=== PATIENT | female | born 1990 | race Caucasian/White ===

== ENCOUNTER 2017-11-15 00:52 | Emergency (ER) | payer OTHER ==
[2017-11-15] MEDS ORDERED: LIDOCAINE 5% (700 MG) TRANSDERMAL ADH..PATCH TP ONE (01:41)
[2017-11-15] MEDS ORDERED: KETOROLAC TROMETHAMINE 60 MG/2 ML SDV IM ONE (01:41)
[2017-11-15] MEDS ORDERED: ACETAMINOPHEN 325 MG TABLET PO ONE (01:41)
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
[2017-11-15 02:56] VITALS: BP 112/73
== END 2017-11-15 02:56 | disposition home or self-care (01) ==
LOC: ER 00:52
DX: M25.512 Pain in left shoulder (principal); F17.200 Nicotine dependence, unspecified, uncomplicated; V87.7XXA Person injured in collision between other specified motor vehicles (traffic), initial encounter
CPT/HCPCS: 99284; 96372; 73030; J1885

== ENCOUNTER 2018-10-02 16:37 | Inpatient (IN) | payer MEDICAID ==
[2018-10-02] MEDS ORDERED: OXYTOCIN 10 UNIT/ML VIAL ONE (16:40)
[2018-10-02] MEDS ORDERED: MISOPROSTOL 0.2 MG TABLET ONE (16:40)
[2018-10-02] MEDS ORDERED: OXYTOCIN/NORMAL SALINE 20 UNIT/1,000 ML RTUINJ ONE (16:40)
[2018-10-02] MEDS ORDERED: LIDOCAINE 1% INJ-PF (10 MG/ML) 30 ML SDV ONE (16:40)
[2018-10-02] MEDS ORDERED: PROMETHAZINE HCL 25 MG TABLET PO PRN (17:04)
[2018-10-02] MEDS ORDERED: MEASLES,MUMPS&RUBELLA VACC/PF 0.5 ML VIAL SUBCUT PRN (17:04)
[2018-10-02] MEDS ORDERED: NA PHOS,M-B/NA PHOS,DI-BA (ADULT) 133 ML ENEMA PR PRN (17:04)
[2018-10-02] MEDS ORDERED: OXYTOCIN/NORMAL SALINE 20 UNIT/1,000 ML RTUINJ IV PRN (17:04)
[2018-10-02] MEDS ORDERED: ACETAMINOPHEN 650 MG SUPP.RECT PR PRN (17:04)
[2018-10-02] MEDS ORDERED: DIPHENHYDRAMINE HCL 25 MG CAPSULE PO PRN (17:04)
[2018-10-02] MEDS ORDERED: PSEUDOEPHEDRINE HCL 30 MG TABLET PO PRN (17:04)
[2018-10-02] MEDS ORDERED: PROMETHAZINE HCL 25 MG SUPP.RECT PR PRN (17:04)
[2018-10-02] MEDS ORDERED: MAGNESIUM HYDROXIDE SUSP 30 ML UDCUP PO PRN (17:04)
[2018-10-02] MEDS ORDERED: PROMETHAZINE HCL INJ 25 MG/1 ML VIAL IV PRN (17:04)
[2018-10-02] MEDS ORDERED: GLYCERIN/WITCH HAZEL LEAF 1 EACH MED..WIPE TP PRN (17:04)
[2018-10-02] MEDS ORDERED: ACETAMINOPHEN WITH CODEINE #3 TABLET PO PRN ×2 (17:04)
[2018-10-02] MEDS ORDERED: DIBUCAINE 1% OINTMENT 56 GM TP PRN (17:04)
[2018-10-02] MEDS ORDERED: ZOLPIDEM TARTRATE 5 MG TABLET PO PRN (17:04)
[2018-10-02] MEDS ORDERED: DIPH/PERTUSS(ACELL)/TETANUS VAC/PF 0.5 ML SYR (>=10YO) IM PRN (17:04)
[2018-10-02] MEDS ORDERED: BENZOCAINE/MENTHOL AEROSOL SPRAY 56 ML TOP PRN (17:04)
[2018-10-02 17:41] LABS: ABSOLUTE BASOPHILS # (AUTO) 0.1 10^3/uL (0.0-0.2); ABSOLUTE EOSINOPHILS # (AUTO) 0.1 10^3/uL (0.0-0.6); ABSOLUTE LYMPHOCYTES (AUTO) 1.3 10^3/uL (0.5-4.7); ABSOLUTE MONOCYTES (AUTO) 1.6 10^3/uL (0.1-1.4); ABSOLUTE NEUT (AUTO) 14.8 10^3/uL (1.7-8.2); BASOPHILS % (AUTO) 0.3 % (0-2); EOSINOPHILS % (AUTO) 0.7 % (0-6); HEMATOCRIT 38.1 % (36.0-47.0); LYMPHOCYTES % (AUTO) 7.5 % (13-45); MEAN CORPUSCULAR HEMOGLOBIN 30.6 pg (27.0-33.4); MEAN CORPUSCULAR VOLUME 90 fl (80-97); MONOCYTES % (AUTO) 9.2 % (3-13); PLATELET COUNT 296 10^3/uL (150-450); RED BLOOD COUNT 4.24 10^6/uL (3.72-5.28); RED CELL DISTRIBUTION WIDTH 12.5 % (11.5-14.0); SEGMENTED NEUTROPHILS % (AUTO) 82.3 % (42-78); TOTAL CELLS COUNTED % (AUTO) 100 %
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
[2018-10-02 17:53] LABS: AMORPHOUS SEDIMENT,URINE TRACE /HPF; APPEARANCE,URINE TURBID; BILIRUBIN,URINE NEGATIVE (NEGATIVE); COLOR,URINE YELLOW; GLUCOSE, URINE NEGATIVE (NEGATIVE); KETONES,URINE TRACE mg/dL (NEGATIVE); LEUKOCYTE ESTERASE,URINE NEGATIVE (NEGATIVE); NITRITE,URINE NEGATIVE (NEGATIVE); PROTEIN,URINE 30 mg/dL (NEGATIVE); URINE SPECIFIC GRAVITY 1.011
[2018-10-02 17:55] LABS: INTERNATIONAL RATION (INR) 0.94
[2018-10-02 17:56] LABS: FIBRINOGEN 428 mg/dL (209-497); PARTIAL THROMBOPLASTIN TIME 30.5 SEC (23.5-35.8)
[2018-10-02 18:03] LABS: ALANINE AMINOTRANSFERASE 28 U/L (9-52); ALBUMIN 3.1 g/dL (3.5-5.0); ALKALINE PHOSPHATASE 181 U/L (38-126); ANION GAP 9 (5-19); ASPARTATE AMINO TRANSFERASE 23 U/L (14-36); BILIRUBIN,DIRECT 0.2 mg/dL (0.0-0.4); BILIRUBIN,TOTAL 0.5 mg/dL (0.2-1.3); BLOOD UREA NITROGEN 7 mg/dL (7-20); CARBON DIOXIDE 23 mmol/L (22-30); CHLORIDE 110 mmol/L (98-107); GLUCOSE 71 mg/dL (75-110); POTASSIUM 3.1 mmol/L (3.6-5.0); SODIUM 141.8 mmol/L (137-145); TOTAL PROTEIN 5.6 g/dL (6.3-8.2); URIC ACID 3.6 mg/dL (2.5-6.2)
[2018-10-02 18:10] LABS: URINE BARBITURATES SCREEN NEGATIVE; URINE BENZODIAZEPINES SCREEN NEGATIVE; URINE COCAINE SCREEN NEGATIVE; URINE MARIJUANA (THC) SCREEN NEGATIVE; URINE METHADONE SCREEN NEGATIVE; URINE PHENCYCLIDINE SCREEN NEGATIVE
[2018-10-02 18:13] LABS: URINE AMPHETAMINES SCREEN UNCONFIRMED POSITIVE
[2018-10-02 18:14] LABS: UR PRO/CREAT RATIO RESULT 0.7 mg/mg (0.0-0.2); URINE CREATININE 87.9 mg/dL (16-327); URINE PROTEIN 57.6 mg/dL (<12)
[2018-10-02] MEDS: DOCUSATE SODIUM 100 MG CAPSULE PO SCH (18:37)
[2018-10-02] MEDS: FERROUS SULFATE 325 MG TABLET PO SCH (18:38)
--- NOTE | 2018-10-02 18:40 | Delivery Summary ---
Del Sum A-C Datetime Report Generated by CPN: 10/02/2018 18:40 DELIVERY PERSONNEL DELIVERY PERSONNEL: [id number] Delivery Doctor:: Adali Mathias MD Labor and Delivery Nurse:: Pili Field RN Nursery Nurse:: Geri Lerma RN Long Chain Dyeing Machine Operator/KIER TENDER: Bridgette Bowena, ST MATERNAL INFORMATION Delivery Anesthesia: None Medications After Delivery: Pitocin Drip 20 Units/1000ml NSS Estimated Blood Loss (ml): 200 Maternal Complications: Precipitous Labor (<3hrs); Other Other Maternal Complications: limited care Complication Details: 1 visit Provider Comments: OB Emergency called to Trauma Room 2 in ER. VMI delivered approximately 3 minutes after arrival. Delivered in SANGITA presentation with compound right hand. Cord doubly clamped and cut and to Nursery personnel then to abdomen for NRP. Patient taken with baby on maternal chest via stretcher to Labor and delivery room#2. Straight cath urine specimen obtained. Placenta delivered intact spontaneously and manual sweep performed with no e/o retained products. 1st degree perineal laceration repaired with 20ml of Lidocaine 1% for local anesthesia. Mother and baby stable upon provider leaving the room. LABOR SUMMARY EDC: 10/18/2018 00:00 No. Babies in Womb: 1 Attempted: No Labor Anesthesia: None LABOR INFORMATION Reason for Induction: Not Applicable Onset of Labor: 10/02/2018 09:00 Complete Dilatation: 10/02/2018 14:33 Oxytocin: N/A Group B Beta Strep: unknown Antibiotics # of Doses: 0 Steroids Given: None Reason Steroids Not Administered: Not Applicable MEMBRANES Membranes Rupture Method: Spontaneous Rupture of Membranes: 10/02/2018 14:30 Length of Rupture (hr): 2.10 Amniotic Fluid Color: Clear Amniotic Fluid Amount: Small Amniotic Fluid Odor: Normal STAGES OF LABOR Stage 1 hr: 5 Stage 1 min: 33 Stage 2 hr: 2 Stage 2 min: 3 Stage 3 hr: 0 Stage 3 min: 24 Total Time in Labor hr: 8 Total Time in Labor min: 0 VAGINAL DELIVERY Episiotomy: None Laceration #1: Perineal Laceration Extension #1: First Degree Laceration Repair: Yes Laceration Repair Note: 1st degree perineal laceration repaired inusual fashion. Sponge Count Correct: Yes Sharps Count Correct: Yes CSECTION DELIVERY Primary Indication: N/A Secondary Indication: N/A CSection Incidence: N/A Labor: N/A Elective: N/A CSection Incision: N/A BABY A INFORMATION Infant Delivery Date/Time: 10/02/2018 16:36 Method of Delivery: Vaginal Born in Route : No : N/A Forceps: N/A Vacuum Extraction: N/A Shoulder Dystocia : No PRESENTATION/POSITION BABY A Presentation: Cephalic Cephalic Presentation: Vertex Vertex Position: Right Occipital Anterior Breech Presentation: N/A PLACENTA INFORMATION BABY A Placenta Delivery Time : 10/02/2018 17:00 Placenta Method of Delivery: Spontaneous Placenta Status: Delivered SCORES BABY A Heart Rate 1 min: >100 bpm Resp Effort 1 min: Good Cry Reflex Irritability 1 min: Cough or Sneeze or Pulls Away Muscle Tone 1 min: Active Motion Color 1 min: Blue/Pale Resuscitation Effort 1 min: Tactile Stimulation SCORE 1 MIN: 8 Heart Rate 5 min: >100 bpm Resp Effort 5 min: Good Cry Reflex Irritability 5 min: Cough or Sneeze or Pulls Away Muscle Tone 5 min: Active Motion Color 5 min: Body [place], Extremities Blue Resuscitation Effort 5 min: N/A SCORE 5 MIN: 9 INFANT INFORMATION BABY A Gestational Age at Delivery: 39.0 Gestational Status: Full Term- 39- 40.6 Weeks Outcome : Liveborn Condition : Stable Infant Sex: Male IDENTIFICATION BABY A Infant Verification Date/Time: 10/02/2018 17:24 ID Band Number: [id number] Mother's Name Verified: Yes RN Verifying Infant: B Baidy RN/[employer] [place] [facility] WEIGHT/LENGTH BABY A Birthweight (gm): 3475 Infant Weight (lb): 7 Weight (oz): 11 Infant Length (in): 20.00 Infant Length (cm): 50.80 CORD INFORMATION BABY A No. Cord Vessels: 3 Nuchal Cord : Around Neck x1, Loose Cord Blood Taken: Yes-For Eval (Mom's Blood Type - or O+) Infant Suction: None ASSESSMENT BABY A Skin to Skin: Yes Skin to Skin Time (min): 15 Infant Care By: K Shamar RN Transferred To: Nursery BABY B INFORMATION : N/A SIGNATURES Signature: with User ID: [email or web address]
[2018-10-02] MEDS ORDERED: NIFEDIPINE 30 MG TAB.ER.24 PO ONE (21:00)
[2018-10-02] MEDS: FAMOTIDINE 20 MG TABLET PO SCH (22:28)
[2018-10-02] MEDS: IBUPROFEN 800 MG TABLET PO SCH (22:30)
[2018-10-02 22:53] LABS: CHLAM PCR NOT DETECTED (NOT DETECT); GON PCR NOT DETECTED (NOT DETECT)
[2018-10-03] MEDS ORDERED: LABETALOL HCL 200 MG TABLET PO ONE (06:15)
[2018-10-03] MEDS: IBUPROFEN 800 MG TABLET PO SCH ×3 (06:29→21:14)
[2018-10-03 07:26] LABS: HEMATOCRIT 34.8 % (36.0-47.0); HEMOGLOBIN 11.9 g/dL (12.0-15.5); MEAN CORPUSCULAR HEMOGLOBIN 30.7 pg (27.0-33.4); MEAN CORPUSCULAR HGB CONC 34.2 g/dL (32.0-36.0); MEAN CORPUSCULAR VOLUME 90 fl (80-97); PLATELET COUNT 305 10^3/uL (150-450); RED BLOOD COUNT 3.87 10^6/uL (3.72-5.28)
[2018-10-03] MEDS: PRENATAL VITAMIN W DHA CAPSULE PO SCH (09:50)
[2018-10-03] MEDS: FAMOTIDINE 20 MG TABLET PO SCH ×2 (09:50→21:14)
[2018-10-03] MEDS: SENNOSIDES/DOCUSATE 8.6-50 MG 1 EACH TABLET PO SCH (09:50)
[2018-10-03] MEDS: FUROSEMIDE 20 MG TABLET PO SCH (09:50)
[2018-10-03] MEDS: NIFEDIPINE 30 MG TAB.ER.24 PO SCH ×2 (09:50→21:14)
[2018-10-03] MEDS: FERROUS SULFATE 325 MG TABLET PO SCH ×2 (09:50→18:58)
[2018-10-03] MEDS: DOCUSATE SODIUM 100 MG CAPSULE PO SCH ×2 (09:50→18:58)
--- NOTE | 2018-10-03 09:59 | PDOC PROGRESS REPORT ---
Subjective-OB Progress Note for:: 10/03/18 Subjective: Pt doing well. Sleeping, reports light bleeding, reg diet and voiding without difficulty. Physical Exam (OB) Vital Signs: Temp Pulse Resp BP Pulse Ox 98.3 F 88 18 159/94 H 99 10/03/18 03:39 10/03/18 03:39 10/03/18 03:39 10/03/18 03:39 10/03/18 03:39 Intake & Output 10/02/18 10/03/18 10/04/18 06:59 06:59 06:59 Weight 86.183 kg - Lochia Lochia Amount: Small 10-25 ml Lochia Color: Rubra/Red - Abdomen Description: Soft, Round Hernia Present: No Fundal Description: Firm, Midline Fundal Height: u/u - u/2 Objective-Diagnostic Laboratory: 10/03/18 07:17 10/02/18 17:24 10/02/18 10/02/18 10/02/18 17:00 17:24 17:24 WBC 18.0 H RBC 4.24 Hgb 13.0 Hct 38.1 MCV 90 MCH 30.6 MCHC 34.0 RDW 12.5 Plt Count 296 Seg Neutrophils % 82.3 H Lymphocytes % 7.5 L Monocytes % 9.2 Eosinophils % 0.7 Basophils % 0.3 Absolute Neutrophils 14.8 H Absolute Lymphocytes 1.3 Absolute Monocytes 1.6 H Absolute Eosinophils 0.1 Absolute Basophils 0.1 Sodium 141.8 Potassium 3.1 L Chloride 110 H Carbon Dioxide 23 Anion Gap 9 BUN 7 Creatinine 0.58 Est GFR ( Amer) > 60 Est GFR (Non-Af Amer) > 60 Glucose 71 L Uric Acid 3.6 Calcium 9.0 Total Bilirubin 0.5 AST 23 ALT 28 Alkaline Phosphatase 181 H Total Protein 5.6 L Albumin 3.1 L Urine Color YELLOW Urine Appearance TURBID Urine pH 6.0 Ur Specific [place] 1.011 Urine Protein 30 H Urine Glucose (UA) NEGATIVE Urine Ketones TRACE H Urine Blood LARGE H Urine Nitrite NEGATIVE Ur Leukocyte Esterase NEGATIVE Urine WBC (Auto) 5 Urine RBC (Auto) 162 Blood Type Antibody Screen 10/02/18 10/03/18 17:24 07:17 WBC 16.0 H RBC 3.87 Hgb 11.9 L Hct 34.8 L MCV 90 MCH 30.7 MCHC 34.2 RDW 13.0 Plt Count 305 Seg Neutrophils % Lymphocytes % Monocytes % Eosinophils % Basophils % Absolute Neutrophils Absolute Lymphocytes Absolute Monocytes Absolute Eosinophils Absolute Basophils Sodium Potassium Chloride Carbon Dioxide Anion Gap BUN Creatinine Est GFR ( Amer) Est GFR (Non-Af Amer) Glucose Uric Acid Calcium Total Bilirubin AST ALT Alkaline Phosphatase Total Protein Albumin Urine Color Urine Appearance Urine pH Ur Specific [place] Urine Protein Urine Glucose (UA) Urine Ketones Urine Blood Urine Nitrite Ur Leukocyte Esterase Urine WBC (Auto) Urine RBC (Auto) Blood Type O NEGATIVE Antibody Screen NEGATIVE Assessment and Plan(PN) - Assessment and Plan (1) Vaginal delivery Is this a current diagnosis for this admission?: Yes (2) Late care Is this a current diagnosis for this admission?: Yes (3) Obstetrical laceration, first degree Is this a current diagnosis for this admission?: Yes - Time Spent with Patient Time with patient: Less than 15 minutes Medications reviewed and adjusted accordingly: Yes - Disposition Anticipated Discharge: Home Within: within 24 hours
[2018-10-03] MEDS: LABETALOL HCL 200 MG TABLET PO SCH (18:58)
[2018-10-04] MEDS: IBUPROFEN 800 MG TABLET PO SCH ×3 (04:59→22:29)
[2018-10-04] MEDS: LABETALOL HCL 200 MG TABLET PO SCH ×2 (06:43→17:33)
[2018-10-04] MEDS: FAMOTIDINE 20 MG TABLET PO SCH ×2 (09:23→22:29)
[2018-10-04] MEDS: SENNOSIDES/DOCUSATE 8.6-50 MG 1 EACH TABLET PO SCH (09:23)
[2018-10-04] MEDS: PRENATAL VITAMIN W DHA CAPSULE PO SCH (09:23)
[2018-10-04] MEDS: DOCUSATE SODIUM 100 MG CAPSULE PO SCH ×2 (09:23→17:32)
[2018-10-04] MEDS: FERROUS SULFATE 325 MG TABLET PO SCH ×2 (09:23→17:33)
[2018-10-04] MEDS: NIFEDIPINE 30 MG TAB.ER.24 PO SCH ×2 (09:24→22:29)
[2018-10-04] MEDS: FUROSEMIDE 20 MG TABLET PO SCH (09:24)
[2018-10-05] MEDS: LABETALOL HCL 200 MG TABLET PO SCH (05:56)
[2018-10-05] MEDS: IBUPROFEN 800 MG TABLET PO SCH ×2 (06:00→14:04)
[2018-10-05 08:38] VITALS: BP 125/80
[2018-10-05] MEDS: FUROSEMIDE 20 MG TABLET PO SCH (09:38)
[2018-10-05] MEDS: SENNOSIDES/DOCUSATE 8.6-50 MG 1 EACH TABLET PO SCH (09:38)
[2018-10-05] MEDS: NIFEDIPINE 30 MG TAB.ER.24 PO SCH (09:38)
[2018-10-05] MEDS: DOCUSATE SODIUM 100 MG CAPSULE PO SCH (09:38)
[2018-10-05] MEDS: FERROUS SULFATE 325 MG TABLET PO SCH (09:38)
[2018-10-05] MEDS: FAMOTIDINE 20 MG TABLET PO SCH (09:38)
[2018-10-05] MEDS: PRENATAL VITAMIN W DHA CAPSULE PO SCH (09:48)
--- NOTE | 2018-10-05 14:29 | PDOC DISCHARGE SUMMARY ---
Final Diagnosis Discharge Date: 10/05/18 - Final Diagnosis (1) Vaginal delivery Is this a current diagnosis for this admission?: Yes (2) Limited care Is this a current diagnosis for this admission?: Yes (3) Late care Is this a current diagnosis for this admission?: Yes (4) Obstetrical laceration, first degree Is this a current diagnosis for this admission?: Yes (5) Hypertension affecting Is this a current diagnosis for this admission?: Yes (6) Precipitous delivery, delivered (current hospitalization) Is this a current diagnosis for this admission?: Yes (7) Drug use affecting Is this a current diagnosis for this admission?: Yes Discharge Data - Discharge Medication Prescriptions: Ibuprofen [Motrin 800 mg Tablet] 800 mg PO Q8HP PRN #30 tablet PRN Reason: Labetalol HCl [Normodyne 200 mg Tablet] 100 mg PO Q12A #30 tablet Nifedipine [Procardia XL 30 mg Tablet] 30 mg PO Q12 #30 tab.er.24 Vit/Dha [ Multi + Dha Capsule] 1 cap PO DAILY #90 capsule Home Medications: Ibuprofen [Motrin 800 mg Tablet] 800 mg PO Q8HP PRN #30 tablet 10/05/18 Labetalol HCl [Normodyne 200 mg Tablet] 100 mg PO Q12A #30 tablet 10/05/18 Nifedipine [Procardia XL 30 mg Tablet] 30 mg PO Q12 #30 tab.er.24 10/05/18 Vit/Dha [ Multi + Dha Capsule] 1 cap PO DAILY #90 capsule 10/05/18 Reason(s) for Admission: Onset of Labor Procedures: Ultrasound Intrapartum Procedure(s): Spontaneous Vaginal Delivery Complication(s): Laceration-Perineal Laceration-Degree: 1st - Diagnosis Test Laboratory: Temp Pulse Resp BP Pulse Ox 98.2 F 76 16 125/80 98 10/05/18 12:09 10/05/18 12:09 10/05/18 12:09 10/05/18 12:09 10/05/18 12:09 10/02/18 10/02/18 10/03/18 17:00 17:24 07:17 RBC 4.24 3.87 Hgb 13.0 11.9 L Hct 38.1 34.8 L Urine Opiates Screen NEGATIVE - Discharge information/Instructions Discharge Activity: Activity As Tolerated, Balance Activity w/Rest, No Lifting Over 10 Pounds, Pelvic Rest, No tub bath, Walk Frequently Discharge Diet: As Tolerated, Regular Disposition: HOME, SELF-CARE Follow up with: [facility]: 3, Days - blood pressure check
== END 2018-10-05 16:15 | disposition home or self-care (01) | DRG 806 ==
LOC: LC 16:37 → LR 16:58 → 2S 19:42
PROVIDERS: ADMIT Student in an Organized Health Care Education/Training Program; ATTEND Student in an Organized Health Care Education/Training Program
PROC: 10E0XZZ Delivery of Products of Conception, External Approach (ICD-10-PCS; principal; 2018-10-02)
PROC: 0HQ9XZZ Repair Perineum Skin, External Approach (ICD-10-PCS; 2018-10-02)
PROC: 4A1HXCZ Monitoring of Products of Conception, Cardiac Rate, External Approach (ICD-10-PCS; 2018-10-02)
DX: O69.81X0 Labor and delivery complicated by cord around neck, without compression, not applicable or unspecified (principal); O99.323 Drug use complicating pregnancy, third trimester; Z37.0 Single live birth; O70.0 First degree perineal laceration during delivery; O62.3 Precipitate labor; F19.90 Other psychoactive substance use, unspecified, uncomplicated; O99.334 Smoking (tobacco) complicating childbirth; F17.210 Nicotine dependence, cigarettes, uncomplicated; O99.344 Other mental disorders complicating childbirth; F41.9 Anxiety disorder, unspecified; F31.9 Bipolar disorder, unspecified; O32.6XX0 Maternal care for compound presentation, not applicable or unspecified; Z86.14 Personal history of Methicillin resistant Staphylococcus aureus infection; Z3A.37 37 weeks gestation of pregnancy
CPT/HCPCS: 36415; 80053; 80307; 81001; 82570; 84156; 84550; 85025; 85027; 85384; 85610; 85730; 86592; 86850; 86900; 86901; 87491; 87591; 88307; G0480; J2590; J3490

== ENCOUNTER 2018-10-15 01:59 | Emergency (ER) | payer MEDICAID ==
[2018-10-15] MEDS ORDERED: NIFEDIPINE 30 MG TAB.ER.24 PO ONE (04:48)
[2018-10-15] MEDS ORDERED: LABETALOL HCL 200 MG TABLET PO ONE (04:48)
[2018-10-15 05:22] LABS: ABSOLUTE BASOPHILS # (AUTO) 0.1 10^3/uL (0.0-0.2); ABSOLUTE EOSINOPHILS # (AUTO) 0.3 10^3/uL (0.0-0.6); ABSOLUTE LYMPHOCYTES (AUTO) 2.7 10^3/uL (0.5-4.7); ABSOLUTE MONOCYTES (AUTO) 0.7 10^3/uL (0.1-1.4); ABSOLUTE NEUT (AUTO) 4.1 10^3/uL (1.7-8.2); BASOPHILS % (AUTO) 1.1 % (0-2); EOSINOPHILS % (AUTO) 3.6 % (0-6); HEMATOCRIT 41.9 % (36.0-47.0); LYMPHOCYTES % (AUTO) 34.1 % (13-45); MEAN CORPUSCULAR HEMOGLOBIN 30.2 pg (27.0-33.4); MEAN CORPUSCULAR HGB CONC 33.4 g/dL (32.0-36.0); MEAN CORPUSCULAR VOLUME 91 fl (80-97); PLATELET COUNT 442 10^3/uL (150-450); RED BLOOD COUNT 4.62 10^6/uL (3.72-5.28); RED CELL DISTRIBUTION WIDTH 12.8 % (11.5-14.0); SEGMENTED NEUTROPHILS % (AUTO) 52.2 % (42-78); TOTAL CELLS COUNTED % (AUTO) 100 %; WHITE BLOOD COUNT 7.8 10^3/uL (4.0-10.5)
[2018-10-15 05:28] LABS: APPEARANCE,URINE SLIGHTLY-CLOUDY; BILIRUBIN,URINE NEGATIVE (NEGATIVE); COLOR,URINE YELLOW; GLUCOSE, URINE NEGATIVE (NEGATIVE); KETONES,URINE NEGATIVE (NEGATIVE); LEUKOCYTE ESTERASE,URINE MODERATE (NEGATIVE); NITRITE,URINE NEGATIVE (NEGATIVE); PROTEIN,URINE NEGATIVE (NEGATIVE); URINE SPECIFIC GRAVITY 1.016; UROBILINOGEN,URINE NEGATIVE mg/dL (<2.0)
[2018-10-15 05:29] LABS: ALANINE AMINOTRANSFERASE 25 U/L (9-52); ALBUMIN 3.7 g/dL (3.5-5.0); ALKALINE PHOSPHATASE 107 U/L (38-126); ANION GAP 7 (5-19); ASPARTATE AMINO TRANSFERASE 35 U/L (14-36); BILIRUBIN,DIRECT 0.2 mg/dL (0.0-0.4); BILIRUBIN,TOTAL 0.3 mg/dL (0.2-1.3); BLOOD UREA NITROGEN 20 mg/dL (7-20); CALCIUM 9.4 mg/dL (8.4-10.2); CARBON DIOXIDE 27 mmol/L (22-30); CHLORIDE 106 mmol/L (98-107); GLUCOSE 84 mg/dL (75-110); LIPASE 120.9 U/L (23-300); POTASSIUM 4.2 mmol/L (3.6-5.0); SODIUM 139.9 mmol/L (137-145); TOTAL PROTEIN 6.5 g/dL (6.3-8.2)
--- NOTE | 2018-10-15 06:12 | ER Document Report ---
ED General - General Chief Complaint: Abdominal Pain Stated Complaint: ABDOMINAL PAIN Time Seen by Provider: 10/15/18 04:14 TRAVEL OUTSIDE OF THE [place] IN LAST 30 DAYS: No - HPI Notes: Patient is a 27-year-old female who presents to the emergency department for evaluation. She is a G2, P2, last vaginal delivery was the end of September. She states she had gestational hypertension with her last , had preeclampsia with her first. She was actually supposed to be continuing on 2 blood pressure medications after delivery, but has not yet filled the prescriptions. She states her blood pressure is high. She also has some lower abdominal pain. She is had some intermittent vaginal bleeding and lochia. No dysuria, hematuria, or urinary frequency. No fevers or chills. She denies any headaches or visual changes. - Related Data Allergies/Adverse Reactions: No Known Allergies Allergy (Verified 11/15/17 02:02) Past Medical History - General Information source: Patient - Social History Smoking Status: Former Smoker Family History: Reviewed & Not Pertinent Patient has suicidal ideation: No Patient has homicidal ideation: No Renal/ Medical History: Denies: Hx Peritoneal Dialysis Musculoskeletal Medical History: Reports Hx Arthritis - L shoulder Psychiatric Medical History: Reports: Hx Depression Review of Systems - Review of Systems Constitutional: No symptoms reported EENT: No symptoms reported Cardiovascular: No symptoms reported Respiratory: No symptoms reported Gastrointestinal: See HPI Genitourinary: No symptoms reported Female Genitourinary: See HPI Musculoskeletal: No symptoms reported Skin: No symptoms reported Neurological/Psychological: No symptoms reported Physical Exam - Vital signs Vitals: Temp Pulse Resp BP Pulse Ox 97.3 F 70 15 128/98 H 96 10/15/18 02:03 10/15/18 02:03 10/15/18 02:03 10/15/18 02:03 10/15/18 02:03 - Notes Notes: Vital signs reviewed, please refer to chart. Head is normocephalic, atraumatic. Pupils equal round, reactive to light. Neck is supple without meningismus. Heart is regular rate and rhythm. Lungs are clear to auscultation bilaterally. Abdomen is soft, nontender, normoactive bowel sounds throughout. Extremities without cyanosis, clubbing. Posterior calves are nontender. Peripheral pulses are equal. Skin is warm and dry. Patient is awake, alert, oriented x3. Cranial nerves II - XII are grossly intact without focal neurological deficits. Strength is plus 5 out of 5 bilateral lower extremities. Sensation is intact. Reflexes symmetrical. Intact [id number], rapid altering movements, [id number]. Course - Re-evaluation Re-evalutation: 10/15/18 06:13 Patient is a 27-year-old female who presents to the emergency department for evaluation of elevated blood pressure and lower abdominal pain. She has had no fevers, no nausea, no vomiting. She is having normal bleeding after . She has an entirely nontender abdomen. Her neurological exam is unremarkable as well. Her blood pressure is moderately elevated here, but she is supposed to be on antihypertensives. She has no protein in her urine. Patient was given her Procardia here. She is told that she needs to fill her prescriptions and take her medications as prescribed. She voiced understanding to this. She also asked that her thyroid be checked, TSH is found to be normal as well. She is to follow-up as scheduled with [facility], return to the ED with worsening or new concerning symptoms. - Vital Signs Vital signs: Temp Pulse Resp BP Pulse Ox 97.3 F 70 18 138/97 H 96 10/15/18 02:03 10/15/18 02:03 10/15/18 05:01 10/15/18 05:01 10/15/18 02:03 - Laboratory Result Diagrams: 10/15/18 04:54 10/15/18 04:54 Laboratory results interpreted by me: 10/15/18 04:45 Urine Blood LARGE H Ur Leukocyte Esterase MODERATE H Discharge - Discharge Clinical Impression: Gestational hypertension, Lower abdominal pain Condition: Stable Disposition: HOME, SELF-CARE Instructions: Abdominal Pain ([facility]), High Blood Pressure, Requiring Treatment ([facility]) Additional Instructions: You need to fill your prescriptions and take your medications as prescribed. Follow-up with your [facility] as scheduled, primary care in 1 to 2 weeks. Return to the emergency department with worsening or new concerning symptoms.
[2018-10-15 08:26] VITALS: BP 126/90
== END 2018-10-15 08:14 | disposition home or self-care (01) ==
LOC: ER 01:59
DX: O13.5 Gestational [pregnancy-induced] hypertension without significant proteinuria, complicating the puerperium (principal); T46.1X6A Underdosing of calcium-channel blockers, initial encounter; Z91.128 Patient's intentional underdosing of medication regimen for other reason; Z91.14 Patient's other noncompliance with medication regimen; O90.89 Other complications of the puerperium, not elsewhere classified; R10.30 Lower abdominal pain, unspecified; O72.2 Delayed and secondary postpartum hemorrhage; Z87.891 Personal history of nicotine dependence
CPT/HCPCS: 99284; 36415; 83690; 84443; 85025; 81025; 80053; 81001; J3490

== ENCOUNTER 2018-12-06 21:18 | Emergency (ER) | payer MEDICAID ==
--- NOTE | 2018-12-06 22:08 | ER Document Report ---
ED Medical Screen (RME) - General Chief Complaint: Suicidal Ideation Stated Complaint: ANXIETY Time Seen by Provider: 12/06/18 22:05 Mode of Arrival: Ambulatory Information source: Patient Notes: 27-year-old female presented to ED today for depression. She states she is very depressed and needs to get back on her medicines but she has come to the emergency room because she has been having intermittent thoughts of suicide. She states she just wanted the mobile crisis to give her the medicine but they said she has to come to the emergency room. She has a 2-month-old child at home and is severely depressed. Patient is alert oriented respirations regular nonlabored speaking in full sentences. She states she might have something in her system but she does not want people coming into her home because of the medication in her system. I have greeted and performed a rapid initial assessment of this patient. A comprehensive ED assessment and evaluation of the patient, analysis of test results and completion of medical decision making process will be conducted by an additional ED providers. Dictation of this chart was performed using voice recognition software; ther efore, there may be some unintended grammatical errors. TRAVEL OUTSIDE OF THE [place] IN LAST 30 DAYS: No - Related Data Allergies/Adverse Reactions: No Known Allergies Allergy (Verified 11/15/17 02:02) Past Medical History Renal/ Medical History: Denies: Hx Peritoneal Dialysis Musculoskeltal Medical History: Reports Hx Arthritis - L shoulder Psychiatric Medical History: Reports: Hx Depression Physical Exam - Vital signs Vitals: Temp Pulse Resp BP Pulse Ox 97.3 F 82 20 141/106 H 100 12/06/18 21:43 12/06/18 21:43 12/06/18 21:43 12/06/18 21:43 12/06/18 21:43 Course - Vital Signs Vital signs: Temp Pulse Resp BP Pulse Ox 97.3 F 82 20 141/106 H 100 12/06/18 21:43 12/06/18 21:43 12/06/18 21:43 12/06/18 21:43 12/06/18 21:43
[2018-12-06 22:36] LABS: ABSOLUTE EOSINOPHILS # (AUTO) 0.3 10^3/uL (0.0-0.6); ABSOLUTE MONOCYTES (AUTO) 0.6 10^3/uL (0.1-1.4); ABSOLUTE NEUT (AUTO) 5.8 10^3/uL (1.7-8.2); BASOPHILS % (AUTO) 0.6 % (0-2); EOSINOPHILS % (AUTO) 3.6 % (0-6); HEMATOCRIT 47.1 % (36.0-47.0); HEMOGLOBIN 15.7 g/dL (12.0-15.5); LYMPHOCYTES % (AUTO) 23.1 % (13-45); MEAN CORPUSCULAR HEMOGLOBIN 30.3 pg (27.0-33.4); MEAN CORPUSCULAR HGB CONC 33.3 g/dL (32.0-36.0); MEAN CORPUSCULAR VOLUME 91 fl (80-97); MONOCYTES % (AUTO) 6.9 % (3-13); PLATELET COUNT 363 10^3/uL (150-450); RED BLOOD COUNT 5.18 10^6/uL (3.72-5.28); RED CELL DISTRIBUTION WIDTH 14.4 % (11.5-14.0); SEGMENTED NEUTROPHILS % (AUTO) 65.8 % (42-78); TOTAL CELLS COUNTED % (AUTO) 100 %; WHITE BLOOD COUNT 8.8 10^3/uL (4.0-10.5)
[2018-12-06] MEDS ORDERED: NICOTINE 14 MG/24 HR PATCH.TD24 TD ONE (22:44)
[2018-12-06 22:50] LABS: AMORPHOUS SEDIMENT,URINE TRACE /HPF; APPEARANCE,URINE SLIGHTLY-CLOUDY; BILIRUBIN,URINE NEGATIVE (NEGATIVE); CALCIUM OXALATE CRYSTALS,URINE MANY /HPF; COLOR,URINE YELLOW; GLUCOSE, URINE NEGATIVE (NEGATIVE); KETONES,URINE NEGATIVE (NEGATIVE); LEUKOCYTE ESTERASE,URINE MODERATE (NEGATIVE); NITRITE,URINE NEGATIVE (NEGATIVE); PROTEIN,URINE 30 mg/dL (NEGATIVE); URINE SPECIFIC GRAVITY 1.019
[2018-12-06 22:56] LABS: ALANINE AMINOTRANSFERASE 29 U/L (9-52); ALBUMIN 4.4 g/dL (3.5-5.0); ALKALINE PHOSPHATASE 75 U/L (38-126); ANION GAP 6 (5-19); ASPARTATE AMINO TRANSFERASE 26 U/L (14-36); BILIRUBIN,DIRECT 0.2 mg/dL (0.0-0.4); BILIRUBIN,TOTAL 0.2 mg/dL (0.2-1.3); BLOOD UREA NITROGEN 9 mg/dL (7-20); CALCIUM 9.3 mg/dL (8.4-10.2); CARBON DIOXIDE 25 mmol/L (22-30); CHLORIDE 109 mmol/L (98-107); GLUCOSE 85 mg/dL (75-110); POTASSIUM 4.2 mmol/L (3.6-5.0); TOTAL PROTEIN 6.8 g/dL (6.3-8.2)
[2018-12-06 22:58] LABS: URINE BARBITURATES SCREEN NEGATIVE; URINE BENZODIAZEPINES SCREEN NEGATIVE; URINE COCAINE SCREEN NEGATIVE; URINE MARIJUANA (THC) SCREEN NEGATIVE; URINE METHADONE SCREEN NEGATIVE; URINE PHENCYCLIDINE SCREEN NEGATIVE
[2018-12-06 23:04] LABS: ACETAMINOPHEN < 10 ug/mL (10-30); ALCOHOL < 10 mg/dL (NONE DETECTED); SALICYLATE < 1.0 mg/dL (2.0-20.0)
[2018-12-06] MEDS ORDERED: SULFAMETHOXAZOLE/TRIMETHOPRIM 800-160 MG TABLET PO ONE (23:10)
--- NOTE | 2018-12-06 23:59 | EKG REPORT ---
SEVERITY:- NORMAL ECG - SINUS RHYTHM : Confirmed by: Khushi De La Cruz MD 06-Dec-2018 23:58:17
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
[2018-12-07] MEDS ORDERED: HYDROXYZINE HCL INJ 50 MG/1 ML VIAL IM ONE (00:24)
[2018-12-07] MEDS ORDERED: SULFAMETHOXAZOLE/TRIMETHOPRIM 800-160 MG TABLET PO SCH (10:00)
[2018-12-07 11:05] VITALS: BP 142/87
== END 2018-12-07 13:15 | disposition home or self-care (01) ==
LOC: ER 21:18
DX: R45.851 Suicidal ideations (principal); F32.9 Major depressive disorder, single episode, unspecified; F15.10 Other stimulant abuse, uncomplicated; F17.210 Nicotine dependence, cigarettes, uncomplicated
CPT/HCPCS: 93005; 99285; 96374; 36415; 87086; 80307 ×4; 84703; 85025; 80053; 81001; 93010; J3410; J3490 ×3

== ENCOUNTER 2018-12-08 19:14 | Emergency (ER) | payer MEDICAID ==
--- NOTE | 2018-12-08 20:58 | ER Document Report ---
ED Medical Screen (RME) - General Chief Complaint: Suicidal Ideation Stated Complaint: SUICIDIAL IDEATIONS, SELF HARM Time Seen by Provider: 12/08/18 20:43 Notes: Patient is a 27-year-old female who presents to the emergency department with suicidal ideations. She was being seen in a detox facility to get off of " ice." She states that she did have some suicidal ideation, but did not comment on a plan. She has a history of depression and was on Effexor. She would like to try to get back on her Effexor. Exam: Withdrawn mood. I have greeted and performed a rapid initial assessment of this patient. A comprehensive ED assessment and evaluation of the patient, analysis of test results and completion of medical decision making process will be conducted by an additional ED providers. TRAVEL OUTSIDE OF THE [place] IN LAST 30 DAYS: No - Related Data Allergies/Adverse Reactions: No Known Allergies Allergy (Verified 11/15/17 02:02) Past Medical History Renal/ Medical History: Denies: Hx Peritoneal Dialysis Musculoskeltal Medical History: Reports Hx Arthritis - L shoulder Psychiatric Medical History: Reports: Hx Depression Physical Exam - Vital signs Vitals: Temp Pulse Resp BP Pulse Ox 97.6 F 80 20 136/99 H 100 12/08/18 19:23 12/08/18 19:23 12/08/18 19:23 12/08/18 19:23 12/08/18 19:23 Course - Vital Signs Vital signs: Temp Pulse Resp BP Pulse Ox 97.6 F 80 20 136/99 H 100 12/08/18 19:23 12/08/18 19:23 12/08/18 19:23 12/08/18 19:23 12/08/18 19:23
[2018-12-08 21:15] LABS: ABSOLUTE BASOPHILS # (AUTO) 0.1 10^3/uL (0.0-0.2); ABSOLUTE EOSINOPHILS # (AUTO) 0.3 10^3/uL (0.0-0.6); ABSOLUTE LYMPHOCYTES (AUTO) 1.5 10^3/uL (0.5-4.7); ABSOLUTE MONOCYTES (AUTO) 0.6 10^3/uL (0.1-1.4); ABSOLUTE NEUT (AUTO) 6.5 10^3/uL (1.7-8.2); BASOPHILS % (AUTO) 0.9 % (0-2); EOSINOPHILS % (AUTO) 3.5 % (0-6); HEMATOCRIT 44.6 % (36.0-47.0); HEMOGLOBIN 14.9 g/dL (12.0-15.5); LYMPHOCYTES % (AUTO) 16.7 % (13-45); MEAN CORPUSCULAR HEMOGLOBIN 30.2 pg (27.0-33.4); MEAN CORPUSCULAR HGB CONC 33.4 g/dL (32.0-36.0); MEAN CORPUSCULAR VOLUME 91 fl (80-97); MONOCYTES % (AUTO) 6.8 % (3-13); PLATELET COUNT 331 10^3/uL (150-450); RED BLOOD COUNT 4.93 10^6/uL (3.72-5.28); RED CELL DISTRIBUTION WIDTH 14.7 % (11.5-14.0); SEGMENTED NEUTROPHILS % (AUTO) 72.1 % (42-78); TOTAL CELLS COUNTED % (AUTO) 100 %
[2018-12-08 21:36] LABS: ALANINE AMINOTRANSFERASE 29 U/L (9-52); ALBUMIN 4.1 g/dL (3.5-5.0); ALKALINE PHOSPHATASE 65 U/L (38-126); ANION GAP 9 (5-19); ASPARTATE AMINO TRANSFERASE 30 U/L (14-36); BILIRUBIN,DIRECT 0.2 mg/dL (0.0-0.4); BILIRUBIN,TOTAL 0.3 mg/dL (0.2-1.3); BLOOD UREA NITROGEN 6 mg/dL (7-20); CALCIUM 9.3 mg/dL (8.4-10.2); CARBON DIOXIDE 19 mmol/L (22-30); CHLORIDE 110 mmol/L (98-107); GLUCOSE 102 mg/dL (75-110); POTASSIUM 4.3 mmol/L (3.6-5.0); TOTAL PROTEIN 6.6 g/dL (6.3-8.2)
[2018-12-08 21:36] LABS: APPEARANCE,URINE CLOUDY; BILIRUBIN,URINE NEGATIVE (NEGATIVE); CALCIUM OXALATE CRYSTALS,URINE TOO NUMEROUS TO CNT /HPF; COLOR,URINE YELLOW; GLUCOSE, URINE NEGATIVE (NEGATIVE); KETONES,URINE NEGATIVE (NEGATIVE); LEUKOCYTE ESTERASE,URINE MODERATE (NEGATIVE); NITRITE,URINE NEGATIVE (NEGATIVE); PROTEIN,URINE 100 mg/dL (NEGATIVE); URINE SPECIFIC GRAVITY 1.014; UROBILINOGEN,URINE NEGATIVE mg/dL (<2.0)
[2018-12-08 21:37] LABS: ACETAMINOPHEN < 10 ug/mL (10-30); ALCOHOL < 10 mg/dL (NONE DETECTED); SALICYLATE < 1.0 mg/dL (2.0-20.0)
[2018-12-08 22:09] LABS: URINE BARBITURATES SCREEN NEGATIVE; URINE BENZODIAZEPINES SCREEN NEGATIVE; URINE COCAINE SCREEN NEGATIVE; URINE MARIJUANA (THC) SCREEN NEGATIVE; URINE METHADONE SCREEN NEGATIVE; URINE PHENCYCLIDINE SCREEN NEGATIVE
--- NOTE | 2018-12-09 01:24 | ER Document Report ---
ED General - General Chief Complaint: Suicidal Ideation Stated Complaint: SUICIDIAL IDEATIONS, SELF HARM Time Seen by Provider: 12/08/18 20:43 TRAVEL OUTSIDE OF THE [place] IN LAST 30 DAYS: No - HPI Notes: Patient is a 27-year-old female who presents to the emergency department for evaluation, initially for depression, substance abuse, and suicidal ideation. The patient was seen here recently. She was sent to [facility]. She signed out AMA. She states that they were not helping, we are starting her on medications. She became more agitated, claimed to have suicidal thoughts again. She denies any john plan. She actually states to me that this time she does not feel suicidal. She states she just wants to get back on medication to get some help. She also states that she would like help getting off of crystal meth. She last smoked about 24 hours ago. She states she drinks alcohol occasionally, denies use of any other illicit drugs. She is currently menstruating. - Related Data Allergies/Adverse Reactions: No Known Allergies Allergy (Verified 11/15/17 02:02) Past Medical History - General Information source: Patient - Social History Smoking Status: Current Every Day Smoker Frequency of alcohol use: Occasional Drug Abuse: Methamphetamine Family History: Reviewed & Not Pertinent Patient has suicidal ideation: Yes Patient has homicidal ideation: No Renal/ Medical History: Denies: Hx Peritoneal Dialysis Musculoskeletal Medical History: Reports Hx Arthritis - L shoulder Psychiatric Medical History: Reports: Hx Depression Review of Systems - Review of Systems Constitutional: No symptoms reported EENT: No symptoms reported Cardiovascular: No symptoms reported Respiratory: No symptoms reported Gastrointestinal: No symptoms reported Genitourinary: No symptoms reported Female Genitourinary: See HPI Musculoskeletal: No symptoms reported Skin: No symptoms reported Neurological/Psychological: See HPI Physical Exam - Vital signs Vitals: Temp Pulse Resp BP Pulse Ox 97.6 F 80 20 136/99 H 100 12/08/18 19:23 12/08/18 19:23 12/08/18 19:23 12/08/18 19:23 12/08/18 19:23 - Notes Notes: Vital signs reviewed, please refer to chart. Head is normocephalic, atraumatic. Pupils equal round, reactive to light. Neck is supple without meningismus. Heart is regular rate and rhythm. Lungs are clear to auscultation bilaterally. Abdomen is soft, nontender, normoactive bowel sounds throughout. Extremities without cyanosis, clubbing. Posterior calves are nontender. Peripheral pulses are equal. Skin is warm and dry. She has multiple superficial skin lesions, consistent with when secondary to amphetamine use. Patient is awake, alert, neurological exam is nonfocal. Depressed and withdrawn affect, disheveled, cooperative with examiner. Course - Re-evaluation Re-evalutation: 12/09/18 01:23 Patient presents to the emergency department for evaluation. Laboratory investigations, EKG obtained. Patient rested comfortably throughout the course of her stay. Patient is medically cleared for psychiatric evaluation. - Vital Signs Vital signs: Temp Pulse Resp BP Pulse Ox 97.6 F 80 20 136/99 H 100 12/08/18 19:23 12/08/18 19:23 12/08/18 19:23 12/08/18 19:23 12/08/18 19:23 - Laboratory Result Diagrams: 12/08/18 21:00 12/08/18 21:00 Laboratory results interpreted by me: 12/08/18 12/08/18 12/08/18 20:53 21:00 21:00 RDW 14.7 H Chloride 110 H Carbon Dioxide 19 L BUN 6 L Creatinine 0.49 L Urine Protein 100 H Urine Blood LARGE H Ur Leukocyte Esterase MODERATE H Salicylates < 1.0 L Acetaminophen < 10 L - EKG Interpretation by Me Additional EKG results interpreted by me: 12/09/18 01:24 Sinus mechanism with a rate of 80 bpm. Normal axis and intervals, no acute ST changes concerning for ischemia or infarction. Discharge - Discharge Clinical Impression: Depression, Suicidal ideation, Methamphetamine abuse Condition: Stable Disposition: OTHER
[2018-12-09 07:02] VITALS: BP 119/86
--- NOTE | 2018-12-09 10:38 | ER Document Report ---
Doctor's Note Notes: 12/09/18 10:37 Rounds: Chart reviewed. Patient sleeping so I did not awaken her. Patient is being evaluated for depression and suicidal thoughts. Lab studies show suggestion of a UTI, but patient did not complain of any symptoms. A urine culture has been ordered. Vital signs are all normal. Patient appears to be medically stable for transfer or discharge. Eliz Shell MD
--- NOTE | 2018-12-09 12:14 | PSYCHOLOGICAL NOTE ---
Psych Note - Psych Note Date seen by psych provider: 12/09/18 Psych Note: Reason for Consult: Substance abuse/ suicidal ideation Patient is a 27-year-old female who presents to the emergency department for evaluation, initially for depression, substance abuse, and suicidal ideation. Substance abuse; methamphetamine No medication recommendations at this time Impression\plan: Patient is cleared from acute psychiatric services. Patient denies current suicidal ideation however it is noted that the patient disclosed passive suicidal ideation last night i.e. no plans means or intent. Patient states that she came to [facility] specifically to get back on her medications which she identifies as Effexor. She reports that she needs help to get off of methamphetamine. She expressed interest in detox with [facility]. Patient will be provided additional resources including additional detox facilities, outpatient substance abuse treatment providers, and mobile crisis contact information. Dr. Amaya was consulted and the care management of this patient; attending physicians in agreement with recommendations and disposition.
--- NOTE | 2018-12-09 18:20 | EKG REPORT ---
SEVERITY:- BORDERLINE ECG - SINUS RHYTHM : Confirmed by: Khushi De La Cruz MD 09-Dec-2018 18:19:05
== END 2018-12-09 13:30 | disposition home or self-care (01) ==
LOC: ER 19:14
DX: F32.9 Major depressive disorder, single episode, unspecified (principal); R45.851 Suicidal ideations; F15.10 Other stimulant abuse, uncomplicated; L98.9 Disorder of the skin and subcutaneous tissue, unspecified; F17.200 Nicotine dependence, unspecified, uncomplicated
CPT/HCPCS: 36415; 80053; 80307; 81001; 81025; 85025; 87086; 93005; 93010; 99285

== ENCOUNTER 2018-12-10 18:12 | Emergency (ER) | payer SELFPAY ==
--- NOTE | 2018-12-10 19:05 | ER Document Report ---
ED Medical Screen (RME) - General Chief Complaint: Psych Problem Stated Complaint: IVC WITH PAPERS Time Seen by Provider: 12/10/18 18:43 Mode of Arrival: Ambulatory Information source: Law Enforcement Notes: HPI: 27-year-old female who is brought in the custody of law enforcement under IVC paperwork from the [facility] for what the paperwork reads is for suicidal ideation. The patient denies this to me. 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 She is very vague in her complaints and will not give me any further history, so hx is limited secondary to this. She denies SI, HI, or visual/auditory hallucinations to me. Denies any pain or complaints. She states she is currently on her menses. She denies taking any medications chronically. She denies any other forms of recreational drug use. She is able to ambulate. No other complaints at this time. She denies ever being admitted to a psych facility in past. Per the patient's paper work that comes from the facility she came from it says she was banging her head on the wall and spitting at people and becoming violent. ROS neg to include 10 systems, unless mentioned in the hpi. PE:>>>> PHYSICAL_EXAM: GENERAL_APPEARANCE: well_nourished, alert, cooperative, no_acute_distress, no_obvious_discomfort. Young white female who appears slightly older than stated age with multiple excoriations on her bilateral upper extremities, appears agitated but not violent and will only answer my questions briefly,s peaking in full sentences, in no sign of pain or resp distress, VITALS: reviewed, see vital signs table. HEAD: no_swelling\tenderness on the head. normocephalic. atraumatic. EYES: PERRL, EOMI, conjunctiva_clear. NOSE: no_nasal_discharge. MOUTH: (-)decreased moisture. THROAT: no_tonsilar_inflammation, no_airway_obstruction. NECK: supple, no_neck_tenderness, full rom. full strength. no meningeal signs. no sign of central cord syndrome. BACK: no_back_tenderness. CHEST_WALL: no_chest_tenderness. no overlying skin changes LUNGS: no_wheezing, ctab (-)accessory muscle use, good air exchange bilateral. HEART: normal_rate, normal_rhythm, ABDOMEN: normal_BS, soft, no_abd_tenderness, (-)guarding, (-)rebound, no distension or peritoneal signs. no cva ttp EXTREMITIES: strength 5/5 in all_extremities, good pulses in all_extremities, no_swelling\tenderness in the extremities, no_edema. full rom. normal gait. good pulses. brisk cap refill. good hand family and marriage counsellor. NEURO: motor and sensation intact, SKIN: warm, dry, good_color, no_rash. MENTAL_STATUS: speech_clear, oriented_X_3, normal_affect, responds_appropriately to questions. MDM: I have ordered labs and initial work-up and patient will be transferred to the main ER for further work-up. I have greeted and performed a rapid initial assessment of this patient. A comprehensive ED assessment and evaluation of the patient, analysis of test results and completion of medical decision making process will be conducted by an additional ED providers. Documentation achieved through voice recording which my lead to some occasional accidental typographical errors. Extensive efforts have been made to proof read documentation to make sure these are the least as possible Category Date Time Status EKG Documentation STAT Care 12/10/18 18:44 Ordered Vital Signs (ED) Q4H Care 12/10/18 18:43 Ordered Consult Documentation [RC] CHANO Cons 12/10/18 18:44 Ordered Physician [CONS] Stat Cons 12/10/18 18:43 Ordered ACETAMINOPHEN [CHEM] Stat Lab 12/10/18 18:43 Ordered ALCOHOL [CHEM] Stat Lab 12/10/18 18:43 Ordered CBC WITH DIFF [HEME] Stat Lab 12/10/18 18:43 Ordered COMPREHENSIVE METABOLIC PANEL [CHEM] Stat Lab 12/10/18 18:43 Ordered HCG-QUAL, SERUM [CHEM] Stat Lab 12/10/18 18:44 Ordered SALICYLATE [CHEM] Stat Lab 12/10/18 18:43 Ordered URINALYSIS [URIN] Stat Lab 12/10/18 18:43 Uncollected URINE DRUG SCREEN [CHEM] Stat Lab 12/10/18 18:43 Uncollected EKG ER ONLY [ER] Stat Oth 12/10/18 18:43 Ordered Temp Pulse Resp BP Pulse Ox 12/10/18 18:21 98.0 F 81 16 131/80 H 100 TRAVEL OUTSIDE OF THE [place] IN LAST 30 DAYS: No - Related Data Allergies/Adverse Reactions: No Known Allergies Allergy (Verified 11/15/17 02:02) Past Medical History Renal/ Medical History: Denies: Hx Peritoneal Dialysis Musculoskeltal Medical History: Reports Hx Arthritis - L shoulder Psychiatric Medical History: Reports: Hx Depression Physical Exam - Vital signs Vitals: Temp Pulse Resp BP Pulse Ox 98.0 F 81 16 131/80 H 100 12/10/18 18:21 12/10/18 18:21 12/10/18 18:21 12/10/18 18:21 12/10/18 18:21 Course - Vital Signs Vital signs: Temp Pulse Resp BP Pulse Ox 98.0 F 81 16 131/80 H 100 12/10/18 18:21 12/10/18 18:21 12/10/18 18:21 12/10/18 18:21 12/10/18 18:21
--- NOTE | 2018-12-10 19:10 | ER Document Report ---
Addendum entered and electronically signed by JESUS BANGURA DO 12/11/18 16:57: Discharge - Discharge Clinical Impression: Suicidal ideation, Methamphetamine abuse Condition: Stable Disposition: HOME, SELF-CARE Additional Instructions: You have been evaluate by both medical and behavioral health teams and have been deemed appropriate for discharge. You are highly encouraged to continue working with your outpatient mental health and substance abuse providers. Substance abuse treatment is voluntary; for treatment to be successful, you must be willing to engage and want change. DEPRESSION: Your evaluation reveals that you have mental depression. While symptoms may be vague, they often include disturbance of sleep, fatigue, loss of appetite, and general loss of interest in life. While depression may be a side effect of drugs, or a reaction to a major change in your life, many cases have no known cause. If depression is acute, and related to a major loss in your life, you can expect it to clear completely with time. If you have been depressed a long time, are prone to repeated bouts of depression or low mood, or have been thinking of suicide, get help. Depression can be treated with anti-depressant medication and counselling. Long-term depression will often take a few weeks to clear, even with appropriate medication. Follow-up care is important. SUICIDAL IDEATION: Suicidal ideation is a common medical term for thoughts about suicide, which may be as detailed as a formulated plan, without the suicidal act itself. Although most people who undergo suicidal ideation do not commit suicide, some go on to make suicide attempts. The range of suicidal ideation varies greatly from fleeting to detailed planning, role playing, and unsuccessful attempts. While thoughts about suicide are common, most people do not carry out serious actions to commit suicide. Based upon your evaluation and discussion with you, we do not believe you are currently at risk to act upon your thoughts of suicide. You have agreed to return to the Emergency Department, at any time, if you feel inclined to act upon your suicidal thoughts. FOLLOW-UP CARE: If you have been referred to a physician for follow-up care, call the physicians office for an appointment as you were instructed or within the next two days. If you experience worsening or a significant change in your symptoms, notify the physician immediately or return to the Emergency Department at any time for re-evaluation. Referrals: [facility] [Outside] - Follow up as needed Addendum entered and electronically signed by OTILIO VILLEDA LCSWA 12/11/18 13:28: Discharge - Discharge Clinical Impression: Suicidal ideation, Methamphetamine abuse Condition: Stable Disposition: HOME, SELF-CARE Additional Instructions: You have been evaluate by both medical and behavioral health teams and have been deemed appropriate for discharge. You are highly encouraged to continue working with your outpatient mental health and substance abuse providers. Substance abuse treatment is voluntary; for treatment to be successful, you must be willing to engage and want change. DEPRESSION: Your evaluation reveals that you have mental depression. While symptoms may be vague, they often include disturbance of sleep, fatigue, loss of appetite, and general loss of interest in life. While depression may be a side effect of drugs, or a reaction to a major change in your life, many cases have no known cause. If depression is acute, and related to a major loss in your life, you can expect it to clear completely with time. If you have been depressed a long time, are prone to repeated bouts of depression or low mood, or have been th inking of suicide, get help. Depression can be treated with anti-depressant medication and counselling. Long-term depression will often take a few weeks to clear, even with appropriate medication. Follow-up care is important. SUICIDAL IDEATION: Suicidal ideation is a common medical term for thoughts about suicide, which may be as detailed as a formulated plan, without the suicidal act itself. Although most people who undergo suicidal ideation do not commit suicide, some go on to make suicide attempts. The range of suicidal ideation varies greatly from fleeting to detailed planning, role playing, and unsuccessful attempts. While thoughts about suicide are common, most people do not carry out serious actions to commit suicide. Based upon your evaluation and discussion wi th you, we do not believe you are currently at risk to act upon your thoughts of suicide. You have agreed to return to the Emergency Department, at any time, if you feel inclined to act upon your suicidal thoughts. FOLLOW-UP CARE: If you have been referred to a physician for follow-up care, call the physicians office for an appointment as you were instructed or within the next two days. If you experience worsening or a significant change in your symptoms, notify the physician immediately or return to the Emergency Department at any time for re-evaluation. Referrals: [facility] [Outside] - Follow up as needed Addendum entered and electronically signed by AMANDA JUARZE DO 12/11/18 01:07: Course - Vital Signs Vital signs: Temp Pulse Resp BP Pulse Ox 98.0 F 81 16 131/80 H 100 12/10/18 18:21 12/10/18 18:21 12/10/18 18:21 12/10/18 18:21 12/10/18 18:21 - Laboratory Result Diagrams: 12/10/18 18:57 12/10/18 18:57 Laboratory results interpreted by me: 12/10/18 12/10/18 12/10/18 18:57 18:57 18:57 RDW 14.3 H Urine Blood MODERATE H Salicylates < 1.0 L Acetaminophen < 10 L - EKG Interpretation by Me Additional EKG results interpreted by me: EKG demonstrates sinus rhythm with a ventricular rate of 67 bpm, normal axis, QTC 444 ms, no evidence of acute ischemia in this EKG, compared to prior without significant change. Original Note: ED General - General Chief Complaint: Psych Problem Stated Complaint: IVC WITH PAPERS Time Seen by Provider: 12/10/18 18:43 Mode of Arrival: Ambulatory Notes: Patient is a 87-year-old female with history of methamphetamine abuse that presents to the emergency department for chief complaint of suicidal ideation. Patient apparently was over at a detox facility, for methamphetamine detox, patient apparently was given medications to help her withdrawal symptoms but refused to take them, and she apparently was talking about suicide because CPS is taken her 2-month-old child. She apparently had threatened to kill a CPS worker, and was having self-harm behavior. She was aggressive towards staff, and was punching her own head with her fist and screaming on the phone, they were concerned because of her aggressive behavior, and as a danger to herself and other people also IVC paperwork was completed and the patient was brought to the emergency department. At this time the patient is withdrawn, only answering with yes and no to questions, she will not affirm or deny whether she was suicidal or homicidal earlier today, she denies either those feelings at this time. She denies any recent illnesses, denies any other drug use or alcohol use, stating she only uses methamphetamines. Past Medical History: Substance abuse Past Surgical History: Denies surgical history Social History: Admits to smoking, denies alcohol use, admits to methamphetamine abuse. Family History: Reviewed and noncontributory for presenting illness Allergies: Reviewed, see documented allergy list. REVIEW OF SYSTEMS: Other than noted above, the 12 point review of systems was reviewed with the patient and were negative, all pertinent findings are included in the HPI. PHYSICAL EXAMINATION: Vital signs reviewed, nursing noted reviewed. GENERAL: Patient is withdrawn, not wanting to answer many questions HEAD: Atraumatic, normocephalic. EYES: Eyes appear normal, extraocular movements intact, sclera anicteric, conjunctiva are normal. PERRLA ENT: nares patent, oropharynx clear without exudates. Moist mucous membranes. NECK: Normal range of motion, supple without lymphadenopathy LUNGS: Breath sounds clear to auscultation bilaterally and equal. No wheezes rales or rhonchi. HEART: Regular rate and rhythm without murmurs ABDOMEN: Soft, nontender, normoactive bowel sounds. No rebound, guarding, or rigidity. No masses appreciated. EXTREMITIES: Nontender, good range of motion, no pitting or edema. NEUROLOGICAL: No focal neurological deficits. Moves all extremities spontaneously Motor and sensory grossly intact on exam. PSYCH: Withdrawn, flat affect, appears mildly agitated, but is lying in bed, and is not being aggressive at this time. SKIN: Warm, Dry, normal turgor, no rashes or lesions noted on exposed skin TRAVEL OUTSIDE OF THE [place] IN LAST 30 DAYS: No - Related Data Allergies/Adverse Reactions: No Known Allergies Allergy (Verified 11/15/17 02:02) Past Medical History - General Information source: Law Enforcement - Social History Smoking Status: Unknown if Ever Smoked Drug Abuse: Methamphetamine Family History: Reviewed & Not Pertinent Patient has suicidal ideation: Yes Patient has homicidal ideation: Yes Renal/ Medical History: Denies: Hx Peritoneal Dialysis Musculoskeletal Medical History: Reports Hx Arthritis - L shoulder Psychiatric Medical History: Reports: Hx Depression Physical Exam - Vital signs Vitals: Temp Pulse Resp BP Pulse Ox 98.0 F 81 16 131/80 H 100 12/10/18 18:21 12/10/18 18:21 12/10/18 18:21 12/10/18 18:21 12/10/18 18:21 Course - Re-evaluation Re-evalutation: Patient seen and examined, vital signs reviewed. Medical screening testing was ordered including bloodwork, EKG, and toxicology. Results of testing were reviewed. Testing demonstrated essentially unremarkable blood work, negative urine tox, negative serum toxicology, and negative . Patient has been stable from a hemodynamic standpoint. At this point I feel that the patient is medically cleared and can be further evaluated from a psychiatric standpoint for final disposition from the emergency department. IVC paperwork was filled out by the detox facility, and will stay in place, until patient is seen in the morning, for further recommendations. Patient updated on plan of care. Laboratory 12/10/18 12/10/18 18:57 18:57 WBC 7.6 RBC 5.13 Hgb 15.4 Hct 46.5 MCV 91 MCH 30.0 MCHC 33.1 RDW 14.3 H Plt Count 335 Seg Neutrophils % 64.7 Lymphocytes % 25.4 Monocytes % 6.3 Eosinophils % 2.7 Basophils % 0.9 Absolute Neutrophils 4.9 Absolute Lymphocytes 1.9 Absolute Monocytes 0.5 Absolute Eosinophils 0.2 Absolute Basophils 0.1 Urine Color YELLOW Urine Appearance SLIGHTLY-CLOUDY Urine pH 6.0 Ur Specific [place] 1.004 Urine Protein NEGATIVE Urine Glucose (UA) NEGATIVE Urine Ketones NEGATIVE Urine Blood MODERATE H Urine Nitrite NEGATIVE Urine Bilirubin NEGATIVE Urine Urobilinogen NEGATIVE Ur Leukocyte Esterase NEGATIVE Urine WBC (Auto) 3 Urine RBC (Auto) 1 Squamous Epi Cells Auto 8 Calcium Oxalate Cr Auto FEW Urine Mucus (Auto) RARE Urine Ascorbic Acid NEGATIVE - Vital Signs Vital signs: Temp Pulse Resp BP Pulse Ox 98.0 F 81 16 131/80 H 100 12/10/18 18:21 12/10/18 18:21 12/10/18 18:21 12/10/18 18:21 12/10/18 18:21 - Laboratory Result Diagrams: 12/10/18 18:57 12/10/18 18:57 Laboratory results interpreted by me: 12/10/18 12/10/18 12/10/18 18:57 18:57 18:57 RDW 14.3 H Urine Blood MODERATE H Salicylates < 1.0 L Acetaminophen < 10 L Discharge - Discharge Clinical Impression: Suicidal ideation Condition: Stable Disposition: PSYCH HOSP/UNIT
[2018-12-10 19:13] LABS: ABSOLUTE BASOPHILS # (AUTO) 0.1 10^3/uL (0.0-0.2); ABSOLUTE EOSINOPHILS # (AUTO) 0.2 10^3/uL (0.0-0.6); ABSOLUTE LYMPHOCYTES (AUTO) 1.9 10^3/uL (0.5-4.7); ABSOLUTE MONOCYTES (AUTO) 0.5 10^3/uL (0.1-1.4); ABSOLUTE NEUT (AUTO) 4.9 10^3/uL (1.7-8.2); BASOPHILS % (AUTO) 0.9 % (0-2); EOSINOPHILS % (AUTO) 2.7 % (0-6); HEMATOCRIT 46.5 % (36.0-47.0); HEMOGLOBIN 15.4 g/dL (12.0-15.5); LYMPHOCYTES % (AUTO) 25.4 % (13-45); MEAN CORPUSCULAR HGB CONC 33.1 g/dL (32.0-36.0); MEAN CORPUSCULAR VOLUME 91 fl (80-97); MONOCYTES % (AUTO) 6.3 % (3-13); PLATELET COUNT 335 10^3/uL (150-450); RED BLOOD COUNT 5.13 10^6/uL (3.72-5.28); RED CELL DISTRIBUTION WIDTH 14.3 % (11.5-14.0); SEGMENTED NEUTROPHILS % (AUTO) 64.7 % (42-78); TOTAL CELLS COUNTED % (AUTO) 100 %; WHITE BLOOD COUNT 7.6 10^3/uL (4.0-10.5)
[2018-12-10 19:22] LABS: APPEARANCE,URINE SLIGHTLY-CLOUDY; BILIRUBIN,URINE NEGATIVE (NEGATIVE); CALCIUM OXALATE CRYSTALS,URINE FEW /HPF; COLOR,URINE YELLOW; GLUCOSE, URINE NEGATIVE (NEGATIVE); KETONES,URINE NEGATIVE (NEGATIVE); LEUKOCYTE ESTERASE,URINE NEGATIVE (NEGATIVE); NITRITE,URINE NEGATIVE (NEGATIVE); PROTEIN,URINE NEGATIVE (NEGATIVE); URINE SPECIFIC GRAVITY 1.004; UROBILINOGEN,URINE NEGATIVE mg/dL (<2.0)
[2018-12-10 19:30] LABS: URINE AMPHETAMINES SCREEN NEGATIVE; URINE BARBITURATES SCREEN NEGATIVE; URINE BENZODIAZEPINES SCREEN NEGATIVE; URINE COCAINE SCREEN NEGATIVE; URINE MARIJUANA (THC) SCREEN NEGATIVE; URINE METHADONE SCREEN NEGATIVE; URINE PHENCYCLIDINE SCREEN NEGATIVE
[2018-12-10 19:38] LABS: ALBUMIN 4.3 g/dL (3.5-5.0); ALKALINE PHOSPHATASE 57 U/L (38-126); ANION GAP 7 (5-19); ASPARTATE AMINO TRANSFERASE 25 U/L (14-36); BILIRUBIN,DIRECT 0.2 mg/dL (0.0-0.4); BILIRUBIN,TOTAL 0.4 mg/dL (0.2-1.3); BLOOD UREA NITROGEN 11 mg/dL (7-20); CALCIUM 9.3 mg/dL (8.4-10.2); CARBON DIOXIDE 26 mmol/L (22-30); CHLORIDE 106 mmol/L (98-107); GLUCOSE 99 mg/dL (75-110); POTASSIUM 4.5 mmol/L (3.6-5.0)
[2018-12-10 19:39] LABS: ALCOHOL < 10 mg/dL (NONE DETECTED)
[2018-12-10 19:40] LABS: ACETAMINOPHEN < 10 ug/mL (10-30); SALICYLATE < 1.0 mg/dL (2.0-20.0)
--- NOTE | 2018-12-11 11:18 | EKG REPORT ---
SEVERITY:- NORMAL ECG - SINUS RHYTHM : Confirmed by: Khushi De La Cruz MD 11-Dec-2018 11:17:31
[2018-12-11 12:46] VITALS: BP 132/84
--- NOTE | 2018-12-11 13:59 | ER Document Report ---
Doctor's Note Notes: 12/11/18 14:00 Patient is calm and cooperative, has been cooperative all day. Patient is not endorsing any suicidal or homicidal ideation. Patient is in no acute distress. Patient is currently requesting discharge. Agree with behavioral health that patient is stable for discharge to home. GENERAL: Alert, interacts well. No acute distress. HEAD: Normocephalic, atraumatic EYES: Pupils equal, round and reactive to light, extraocular movements intact. ENT: Oral mucosa moist, tongue midline. NECK: Full range of motion, supple, trachea midline. LUNGS: no respiratory distress. EXTREMITIES: Moves all 4 extremities spontaneously, no edema. No cyanosis. NEUROLOGICAL: Alert and oriented x3, normal speech. PSYCH: Normal mood, normal affect. SKIN: Warm, Dry, normal turgor, no rashes or lesions noted.
== END 2018-12-11 17:45 | disposition home or self-care (01) ==
LOC: ER 18:12
DX: R45.851 Suicidal ideations (principal); F19.10 Other psychoactive substance abuse, uncomplicated; F17.200 Nicotine dependence, unspecified, uncomplicated
CPT/HCPCS: 36415; 80053; 80307; 81001; 84703; 85025; 93005; 93010; 99285